=== PATIENT | female | born 1970 | race Caucasian/White ===

== ENCOUNTER → 2019-12-13 | Outpatient (CLI) | payer OTHER ==
--- NOTE | 2019-12-14 08:40 | RAD ---
Examination: SHOULDER 2+V LEFT History: Pain Comparison/Correlation: None Findings: Total 3 images of the left shoulder were obtained. Mild acromioclavicular joint space narrowing is present. The left glenohumeral joint space is unremarkable. No acute fracture or bone destructive. Soft tissues are unremarkable. The mostly visualized left lung field is unremarkable. Impression: No acute process. Electronically signed by: Michael Mcnair MD (12/14/2019 8:37 AM) [facility]
--- NOTE | 2019-12-14 08:41 | RAD ---
Examination: WRIST 2V LEFT History: Pain Comparison/Correlation: None Findings: Total of 2 images of the left wrist were obtained. Degenerative changes of the left first carpometacarpal joint with narrowing and spurring are evident. No acute fracture or bone destruction. Soft tissues are unremarkable. No degenerative change. Impression: Left first carpometacarpal joint degenerative narrowing and spurring. No acute process. Electronically signed by: Michael Mcnair MD (12/14/2019 8:38 AM) [facility]
== END | disposition home or self-care (01) ==
LOC: RAD 12:41
PROVIDERS: ATTEND Family Medicine
DX: M77.8 Other enthesopathies, not elsewhere classified (principal); M25.512 Pain in left shoulder
CPT/HCPCS: 73030; 73100